=== PATIENT | male | born 1965 | race Caucasian/White ===

== ENCOUNTER → 2020-05-06 | Outpatient (CLI) | payer OTHER ==
[~2020-05-06] MED LIST: ALDA25TA2 OR; AMLO1TAB24 PO; BACI500O8 TOP; CHLO125TA; CHLORTHALIDONE PO; CLEO300C2 PO; COZA100T OR; HYDR-2541 PO; IBUP-1022 PO; IBUP800T OR; LEVA1TAB2 PO; LOSA25TA14 PO; METF-838; MULTIVIT PO; NORV2TAB OR; PRED20TA PO; SILD50TA2; VITMTA PO
== END ==
LOC: M LABSMTC 10:25
PROVIDERS: ATTEND Anesthesiology
DX: Z01.812 Encounter for preprocedural laboratory examination (principal); Z20.822 Contact with and (suspected) exposure to COVID-19

== ENCOUNTER 2020-05-11 07:35 | Day surgery (SDC) | payer OTHER ==
[~2020-05-11] VITALS: Ht 185.4 cm; Wt 136.4 kg
[~2020-05-11 07:35] MED LIST changes: +NS 1,000 ML IV ONE
--- OUTSIDE RECORDS SUMMARY | 2020-05-11 07:39 | CCD ---
Author Author Fantasma Carpenter MD [facility] Organization Fantasma Carpenter MD [facility] Address [address] [address] Phone Care Team Providers Care Cougar Hunter Name Role Phone Pauline SALDANA FACS, David A. Unavailable [phone] Reason for Referral No Reason for Referral Recorded Problems Includes: Active, inactive, and resolved Problems All Visits Onset Date - Time Resolved Date - Time Provider Co ndition Status Taking Medication For Diabetes Long-term Use of Oral H ypoglycemics 04/06/2020 - 12:00AM Fantasma Carpenter MD, FACS Active Conjunctivitis Chronic Allergic 04/06/2020 - 12:00AM Fantasma Carpenter MD, FACS Active Diabetes Mellitus Type 2 Without Complication 04/06/2020 - 12:00 AM Fantasma Carpenter MD, FACS Active Dry Eye Syndrome Both Eyes 04/06/2020 - 12:00AM Fantasma Carpenter MD, FACS Active Vitreous Disorders Degeneration 04/06/2020 - 12:00AM Fantasma Carpenter MD, FACS Active Plan of Treatment Future Appointments Date Time Location Provider 1 Year Follow-Up 04/06/2021 9:15AM Fantasma Carpenter MD [facility] Fantasma Carpenter MD, FACS Assessments Includes: Assessments for all patient encounters Findings Encounter Date Chronic allergic conjunctivitis NEW PATIENT WITH REFER RAL with Fantasma Menjivar MD, FACS 04/06/2020 Dry eye syndrome of both eyes NEW PATIENT WITH REFERRA L with Fantasma Carpenter MD, FACS 04/06/2020 Essential hypertension NEW PATIENT WITH REFERRAL [facility] Fantasma Carpenter MD, FACS 04/06/2020 Long-term use of oral hypoglycemics NEW PATIENT WITH R EFERRAL with Fantasma Carpenter MD, ADILENE 04/06/2020 Type 2 diabetes mellitus without complication NEW [facility] WITH REFERRAL with Fantasma Carpenter MD, FACS 04/06/2020 Vitreous degeneration NEW PATIENT WITH REFERRAL [facility] Fantasma Carpenter MD, FACS 04/06/2020 Instructions Instructions not supported for this document typeNo Instructions Recorded Medical Equipment - Implanted Devices Includes: Current and historical DevicesNo Medical Equipment Recorded Medications Includes: Current and historical Medications Current Medications (continue as prescribed) Losartan 50 MG Oral Tablet 04/06/2020 Provider: Diagnosis: Amlodipine 5mg Oral Tablet 04/06/2020 Provider: Diagnosis: Chlorothiazide 25 MG Oral Tablet 04/06/2020 Provide r: Diagnosis: metFORMIN HCl 500 MG Oral Tablet 04/06/2020 Provide r: Diagnosis: Medications Administered Includes: Administered Medications in patient's chartNo Administered Medications Recorded Vital Signs Includes: Vital Signs from 04/06/2019 through 04/06/2020No Vital Signs Recorded For Specified Dates Results Includes: Results from 04/06/2019 through 04/06/2020No Results Recorded For Specified Dates History of Present Illness History of Present Illness not supported for this document typeNo History of Present Illness Recorded Social History Description Last Updated A social drinker 04/06/2020 No tobacco use 04/06/2020 Not using drugs 04/06/2020 Smoking status : Never smoker 04/06/2020 Procedures and Surgical History Includes: Procedures from 04/06/2019 through 04/06/2020 Procedures Code Diagnosis Performing Provider Service Location Service Date Medical Eye Exam 12329 Type 2 diabetes prerna itus without complications, intermediate card tender (current) use of oral hypoglycemic drugs, Other chronic allergic conjunctivitis, Dry eye syndrome of bilateral lacrimal glands Fantasma Carpenter MD, FACS 04/06/2020 Surgical History Last Updated Surgical / procedural history Appendix 1992 0 Medical History Includes: Medical History in patient's chart Description Last Updated History of type 2 diabetes mellitus DX: 02/2020 A1c: 10 w/ [place] Provider FBS: Does not check currently 04/06/2020 History of hypertension 04/06/2020 Currently wearing eyeglasses 04/06/2020 Family History Includes: Family History in patient's chart Description Last Updated Fraternal history of family history of cancer 04/06/20 20 Maternal history of arthritis 04/06/2020 Maternal history of heart disease 04/06/2020 Maternal history of hypertension 04/06/2020 Son's history of strabismus 04/06/2020 Review of Systems Review of Systems not supported for this document typeNo Review of Systems Recorded Mental Status Mental Status not supported for this document type Description Oriented to time, place, and person Functional Status Functional Status not supported for this document typeNo Functional Status Recorded Physical Exam Physical Exam not supported for this document typeNo Physical Exam Recorded Immunizations Includes: Immunizations in patient's chartNo Immunizations Recorded Allergies Includes: Active, inactive, and resolved Allergies Substance Type Reaction Onset Date - Time Resolved Date - Ti me Status Penicillin Allergy 04/06/2020 - 9:54AM Activ e Encounters Includes: Encounters from 04/06/2019 through 04/06/2020 Encounter Provider Location Date Check-In Time Check-Out Time D iagnosis NEW PATIENT WITH REFERRAL Fantasma Carpenter MD, FACS Fantasma Schmidt MD [facility] 04/06/2020 10:03AM 10:35AM Conjunctivitis Chron ic Allergic, Dry Eye Syndrome Both Eyes, Vitreous Disorders Degeneration, Taking Medication For Diabetes Long- term Use of Oral Hypoglycemics, Diabetes Mellitus Type 2 Without Complication, Essential Hypertension Insurance Includes: Active Insurance Policies Plan Name Member ID Group # Subscriber Relationship Effective Da nicolas 1 - [employer] RETIRED [id number] Vitor malnoe Advance Directives Includes: Current Advance DirectivesNo Advance Directives Recorded Health Concerns Includes: Active Health ConcernsNo Active Health Concerns Recorded Goals Includes: Active GoalsNo Active Goals Recorded Interventions Includes: Interventions for active GoalsNo Interventions Recorded Evaluations & Outcomes Includes: Evaluations & Outcomes for active GoalsNo Outcomes Recorded
--- OUTSIDE RECORDS SUMMARY | 2020-05-11 07:39 | CCD ---
Author Author [facility] Organization [facility] Address Unknown Phone Unavailable Care Team Providers Care Predator Control Trapper Name Role Phone Mor Menjivar, Mónica Meek MD, FACS Unavailable Unavailable Juares Menjivar, Mónica Meek MD, FACS Unavailable Unavailable Juares Menjivar, Mónica Meek MD, FACS Unavailable Unavailable Juares Menjivar, Mónica Meek MD, FACS Unavailable Unavailable Juares Menjivar, Mónica Meek MD, FACS Unavailable Unavailable Juares Menjivar, Mónica Meek MD, FACS Unavailable Unavailable Juares Menjivar, Mónica Meek MD, FACS Unavailable Unavailable Juares Menjivar, Mónica Meek MD, FACS Unavailable Unavailable Juares Menjivar, Mónica Meek MD, FACS Unavailable Unavailable Juares Menjivar, Mónica Meek MD, FACS Unavailable Unavailable Juarse Menjivar, Mónica Meek MD, FACS Unavailable Unavailable Juares Menjivar, Mónica Meek MD, FACS Unavailable Unavailable Juares Menjivar, Mónica Meek MD, FACS Unavailable Unavailable Juares Menjivar, Mónica Meek MD, FACS Unavailable Unavailable Juares Menjivar, Mónica Meek MD, FACS Unavailable Unavailable Juares Menjivar, Mónica Meek MD, FACS Unavailable Unavailable Juares Menjivar, Mónica Meek MD, FACS Unavailable Unavailable Juares Menjivar, Mónica Meek MD, FACS Unavailable Unavailable Juares Menjivar, Mónica Meek MD, FACS Unavailable Unavailable Juares Menjivar, Mónica Meek MD, FACS Unavailable Unavailable Juares Menjivar, Mónica Meek MD, FACS Unavailable Unavailable Juares Menjivar, Mónica Meek MD, FACS Unavailable Unavailable Juares Menjivar, Mónica Meek MD, FACS Unavailable Unavailable Juares Menjivar, Mónica eMek MD, FACS Unavailable Unavailable Juares Menjivar, Mónica Meek MD, FACS Unavailable Unavailable Juares Menjivar, Mónica Meek MD, FACS Unavailable Unavailable Juares Menjivar, Mónica Meek MD, FACS Unavailable Unavailable Juares Menjivar, Mónica Meek MD, FACS Unavailable Unavailable Juares Menjivar, Mónica Meek MD, FACS Unavailable Unavailable Juares Menjivar, Mónica Meek MD, FACS Unavailable Unavailable Juares Menjivar, Mónica Meek MD, FACS Unavailable Unavailable Juares Menjivar, Mónica Meek MD, FACS Unavailable Unavailable Juares Menjivar, Mónica Meek MD, FACS Unavailable Unavailable Juares Menjivar, Mónica Meek MD, AIDLENE Unavailable Unavailable Re-disclosure Warning The records that you are about to access may contain information from federally-assisted alcohol or drug abuse programs. If such information is present, then the following federally mandated warning applies: This information has been disclosed to you from records protected by federal confidentiality rules (42 CFR part 2). The federal rules prohibit you from making any further disclosure of this information unless further disclosure is expressly permitted by the written consent of the person to whom it pertains or as otherwise permitted by 42 CFR part 2. A general authorization for the release of medical or other information is NOT sufficient for this purpose. The Federal rules restrict any use of the information to criminally investigate or prosecute any alcohol or drug abuse patient.The records that you are about to access may contain highly sensitive health information, the redisclosure of which is protected by Article 27-F of the [facility] Public Health law. If you continue you may have access to information: Regarding HIV / AIDS; Provided by facilities licensed or operated by the [facility] Office of Mental Health; or Provided by the [facility] Office for People With Developmental Disabilities. If such information is present, then the following [facility] mandated warning applies: This information has been disclosed to you from confidential records which are protected by state law. State law prohibits you from making any further disclosure of this information without the specific written consent of the person to whom it pertains, or as otherwise permitted by law. Any unauthorized further disclosure in violation of state law may result in a fine or snf sentence or both. A general authorization for the release of medical or other information is NOT sufficient authorization for further disc losure. Allergies and Adverse Reactions Type Description Substance Reaction Status Data Source(s ) Drug allergy Penicillin Oral Tablet Penicillin Active RICK (Fantasma Menjivar MD [facility]) Family History Family Member Name Family Member Gender Family Member Status Date o f Status Description Data Source(s) Unknown Female Encounters Encounter Providers Location Date Indications Data Source(s ) Outpatient<td ID="encounterTypeDescripti onID0">NEW PATIENT WITH REFERRAL</td><td>Fnatasma Carpenter MD, FACS</td><td>Fantasma Carpenter MD [facility]</td><td>04/06/2020</td><td>10:03AM</td><td>10:35AM</td><td><content ID="encounterDiagnosisID0-0">Conjunctivitis Chronic Allergic</content>, <content ID="encounterDiagnosisID0-1">Dry Eye Syndrome Both Eyes</content>, <content ID="encounterDiagnosisID0-2">Vitreous Disorders Degeneration</content>, <content ID="encounterDiagnosisID0-3">Taking Medication For Diabetes Long-term Use of Oral Hypoglycemics</content>, <content ID="encounterDiagnosisID0-4">Diabetes Mellitus Type 2 Without Complication</content>, <content ID="encounterDiagnosisID0-5">Essential Hypertension</content></td> Attender: Fantasma Menjivar MD, ADILENE Carpenter MD [facility] 04/06/2020 10:03:00 AM EST - 04/06/2020 10:35:00 AM EST Essential HypertensionDiabetes Mellitus Type 2 Without ComplicationTaking Medication For Diabetes Long-term Use of Oral HypoglycemicsVitreous Disorders DegenerationDry Eye Syndrome Both EyesConjuncti vitis Chronic Allergic RICK (Fantasma Menjivar MD [facility]) Essential Hypertension Diabetes Mellitus Type 2 Without Complic ation Taking Medication For Diabetes Long-term Use of Oral Hypoglycemics Vitreous Disorders Degeneration Dry Eye Syndrome Both Eyes Conjunctivitis Chronic Allergic Medications Medication Brand Name Start Date Product Form Dose Route Admi nistrative Instructions Pharmacy Instructions Status Indications Reaction Description Data Source(s) Chlorothiazide 25 MG Oral Tablet Chlorothiazide 25 MG Oral T ablet 04/06/2020 12:00:00 AM EST 1 active Chloroth iazide RICK (Fantasma Menjivar MD [facility]) Metformin hydrochloride 500 MG Oral Tablet metFORMIN H Cl 500 MG Oral Tablet metFORMIN HCl 500 MG Oral Tablet 04/06/2020 12:00:00 AM EST 1 active metformin hydrochloride 500 MG Oral Tablet RCIK (Rhea Menjivar MD [facility]) Amlodipine 5mg Oral Tablet Amlodipine 5mg Oral Tablet 2019 12:00:00 AM EST 1 active Amlodipine 5mg Or al Tablet RICK (Fantasma Menjivar MD [facility]) Losartan 50 MG Oral Tablet Losartan 50 MG Oral Tablet 2019 12:00:00 AM EST 1 active Losartan RICK (Fantasma Menjivar MD [facility]) Insurance Providers Payer name Policy type / Coverage type Policy ID Covered alliance party ID Covered alliance party's relationship to herrera Policy Herrera Plan Information [employer] [id number] SP [id number] [facility] [id number] SP [id number] [employer] [id number] SP [id number] [facility] SIM O [id number] S [id number] [facility] 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 [id number] SP [id number] Problems, Conditions, and Diagnoses Code Display Name Description Problem Type Effective Dates Data Source(s) 17574247 Essential hypertension Essential hypertension Problem 04/06/2020 12:00:00 AM EST [facility] ([facility], ) 379.21 Vitreous Disorders Degeneration Vitreous Disorders Deg eneration Problem 04/06/2020 12:00:00 AM EST RICK (Fantasma Menjivar MD [facility]) 11265346 Dry Eye Syndrome Both Eyes Dry Eye Syndrome Both Eyes Problem 04/06/2020 12:00:00 AM EST RICK (Fantasma Mnejivar MD [facility]) 250.00 Diabetes Mellitus Type 2 Without Complic ation Diabetes Mellitus Type 2 Without Complication Problem 04/06/2020 12:00:00 AM EST RICK (Papi Menjivar MD [facility]) 372.14 Conjunctivitis Chronic Allergic Conjunctivitis Chronic Allergic Problem 04/06/2020 12:00:00 AM EST RICK (Fantasma Menjivar MD [facility]) Z79.84 Taking Medication For Diabetes Long-term Use of Oral Hypoglycemics Taking Medication For Diabetes Long-term Use of Oral Hypoglycemics Problem 04/06/2020 12:00:00 AM EST RICK (Fantasma Menjivar MD [facility]) Surgeries/Procedures Procedure Description Date Indications Data Source(s) Surgical / procedural history Appendix 1992 Surgical / procedural history Appendix 1993 04/06/2020 12:00:00 AM EST RICK (Andrea Menjivar MD [facility]) Medical Eye Exam Medical Eye Exam 04/06/2020 12:00:00 AM EST RICK (Fantasma Menjivar MD [facility]) Results ID Date Data Source [id number] 05/06/2020 10:00:00 AM EST [facility] Name Value Range Interpretation Code Description Data Rosa rce(s) Supporting Document(s) SARS coronavirus 2 RNA Not Detected [facility] [place] This lab was ordered by [facility] and reported by [facility]. ID Date Data Source [id number] 05/06/2020 09:36:00 AM EST [facility] Name Value Range Interpretation Code Description Data Rosa rce(s) Supporting Document(s) SARS coronavirus 2 RNA Not Detected [facility] [place] This lab was ordered by [facility] and reported by [facility]. Procedure Social History Code Duration Value Status Description Data Source(s ) Smoking 04/06/2020 10:36:59 AM EST Never smoked tobacco (findi ng) completed Never smoked tobacco (finding) RICK (Fantasma Menjivar MD [facility]) Vital Signs ID Date Data Source UNK Name Value Range Interpretation Code Description Data Source(s) Body surface area Derived from formula 2.59 m2 2.59 m2 [facility] ([facility]) Body weight 140.162 kg 140.162 kg [facility] ([facility]) [place] body weight 184 [lb_av] 184 [lb_av] [facility] ([facility]) Body mass index (BMI) [Ratio] 40.8 kg/m2 40.8 k g/m2 [facility] ([facility]) Body weight 309.00 [lb_av] 309.00 [lb_av] [facility] ([facility]) Body height 73 [in_i] 73 [in_i] [facility] ([facility]) 6'1" Diastolic blood pressure 86 mm[Hg] 86 mm[Hg] [facility]) Systolic blood pressure 148 mm[Hg] 148 mm[Hg] [facility]ric[facility] ([facility])
--- OUTSIDE RECORDS SUMMARY | 2020-05-11 07:39 | CCD | Continuity of Care Document ---
Author Author [facility] Organization Unknown Address [address], [address] [place] [address] Phone [phone] Care Team Providers Care Quarter Inspector Name Role Phone Giorgi Dsouza D.O. Unavailable Problems Active Problems Provider Date Essential hypertension Jonathan Dykes NP Onset: 04/06/2020 Social History Type Date Description Comments Sex Unknown ETOH Use 2 A Month Tobacco Use Start: Unknown Denies Smoking Recreational Drug Use Denies Drug Use Allergies, Adverse Reactions, Alerts Active Allergies Reaction Severity Comments Date Penicillin V 04/06/2020 Medications Active Medications SIG Qnty Indications Ordering Provide r Date Metformin HCL 500mg Tablets 4 Tabs qd Unknown Losartan Potassium 50mg Tablets 1 qd Unknown Amlodipine Besylate 5mg Tablets 1 qd Unknown Chlorthalidone 25mg Tablets 1 qd Unknown Aleve 220mg Capsules 2 tabs by mouth prn Unknown Immunizations Description No Information Available Vital Signs Date Vital Result Comment 04/07/2020 3:32pm BP Systolic 148 mmHg BP Diastolic 86 mmHg Height 73 inches 6'1" Weight 309.00 lb BMI (Body Mass Index) 40.8 kg/m2 [place] Body Weight 184 lb Weight 140.162 kg BSA (Body Surface Area) 2.59 m2 Results Description No Information Available Procedures Description No Information Available Medical Devices Description No Information Available Encounters Description No Information Available Assessments Date Code Description Provider 04/07/2020 Z12.11 Encounter for screening for mariela gnant neoplasm of colon Jonathan Dykes NP Plan of Treatment 04/07/2020 - Jonathan Dykes NP* Z12.11 Encounter for screening for malignant neoplasm of colon* Comments:* The patient is here for recommendations concerning screening colonoscopy with a family history of colon cancer and fits the criteria for screening colonoscopy with a family history of colon cancer. And at this point the recommendation is to proceed with a repeat colonoscopy risks as well as benefits have been discussed with him at length those including but not limited to bleeding infection damage to bowel including perforation and possibly anesthetic complications. Patient u nderstands as well that small lesions/polyps can be missed with increased frequency and is much dependent on colonic prep. The patient agrees to proceed with colonoscopy as recommended. Functional Status Description No Information Available Mental Status Description No Information Available Referrals Refer to Reason for Referral Status Appt Date Aubrey Quezada JR, MD COLONOSCOPY Created 0 6 [facility] [address] [place] [id number] [phone]
[2020-05-11] MEDS ORDERED: propofoL 200 MG/20 ML VIAL As Ordered ONE ×3 (08:21→08:50)
[2020-05-11] MEDS ORDERED: LIDOCAINE 2% 100MG/5ML SDV (FOR ANES.) As Ordered ONE (08:21)
--- NOTE | 2020-05-11 09:01 | ROOR ---
Patient Name: Vitor Nicholson Procedure Date: 05/11/2020 8:32 AM Date of : 1965 Age: 54 Room: [facility] Gender: Male Note Status: Finalized Procedure: Colonoscopy Indications: Screening for colorectal malignant neoplasm Providers: DO Shad Castano MD: SABRINA BENNETT MD Requesting Provider: Medicines: Propofol per Anesthesia Complications: No immediate complications. Procedure: Pre-Anesthesia Assessment: - Prior to the procedure, a History and Physical was performed, and patient medications and allergies were reviewed. The patient is competent. The risks and benefits of the procedure and the sedation options and risks were discussed with the patient. All questions were answered and informed consent was obtained. Patient identification and proposed procedure were verified by the physician, the nurse, the anesthesiologist and the general maintenance technician in the endoscopy suite. Mental Status Examination: alert and oriented. Airway Examination: normal oropharyngeal airway and neck mobility. Respiratory Examination: clear to auscultation. CV Examination: normal. Prophylactic Antibiotics: The patient does not require prophylactic antibiotics. Prior Anticoagulants: The patient has taken no previous anticoagulant or antiplatelet agents. ASA Grade Assessment: II - A patient with mild systemic disease. After reviewing the risks and benefits, the patient was deemed in satisfactory condition to undergo the procedure. The anesthesia plan was to use monitored anesthesia care (MAC). Immediately prior to administration of medications, the patient was re-assessed for adequacy to receive sedatives. The heart rate, respiratory rate, oxygen saturations, blood pressure, adequacy of pulmonary ventilation, and response to care were monitored throughout the procedure. The physical status of the patient was re-assessed after the procedure. The Colonoscope was introduced through the anus and advanced to the cecum, identified by appendiceal orifice and ileocecal valve. The colonoscopy was performed without difficulty. The patient tolerated the procedure well. Findings: Two pedunculated polyps were found in the transverse colon and mid transverse colon. The polyps were less than 5 mm in size. These polyps were removed with a hot snare. Resection and retrieval were complete. Estimated blood loss was minimal. Non-bleeding internal hemorrhoids were found during retroflexion. The hemorrhoids were Grade I (internal hemorrhoids that do not prolapse). Impression: - Two less than 5 mm polyps in the transverse colon and in the mid transverse colon, removed with a hot snare. Resected and retrieved. - Non-bleeding internal hemorrhoids. Recommendation: - Patient has a contact number available for emergencies. The signs and symptoms of potential delayed complications were discussed with the patient. Return to normal activities tomorrow. Written discharge instructions were provided to the patient. - Await pathology results. - Repeat colonoscopy in 3 - 5 years for surveillance based on pathology results. - Telephone my office for pathology results in 1 week. Procedure Code(s): --- Professional --- 75333, Colonoscopy, flexible; with removal of tumor(s), polyp(s), or other lesion(s) by snare technique Diagnosis Code(s): --- Professional --- Z12.11, Encounter for screening for malignant neoplasm of colon K63.5, Polyp of colon K64.0, First degree hemorrhoids CPT copyright 2019 [employer]. All rights reserved. The codes documented in this report are preliminary and upon compliance engineer review may be revised to meet current compliance requirements. Agusto Nunez DO 05/11/2020 9:01:14 AM Electronically signed by Agusto Nunez DO Number of Addenda: 0 Note Initiated On: 05/11/2020 8:32 AM Estimated Blood Loss: Estimated blood loss was minimal.
[2020-05-11 09:25] VITALS: BP 119/75
== END 2020-05-11 09:35 | disposition home or self-care (01) ==
LOC: M OPP 07:35
PROVIDERS: ATTEND Surgery
DX: Z12.11 Encounter for screening for malignant neoplasm of colon (principal); D12.3 Benign neoplasm of transverse colon; K64.0 First degree hemorrhoids; I10 Essential (primary) hypertension; E11.9 Type 2 diabetes mellitus without complications; G47.30 Sleep apnea, unspecified; Z88.0 Allergy status to penicillin; Z79.84 Long term (current) use of oral hypoglycemic drugs; Z79.899 Other long term (current) drug therapy